=== PATIENT | female | born 1970 | race American Indian/Alaskan Native ===

== ENCOUNTER 2018-12-06 11:59 | Outpatient (CLI) | payer BC, OTHER | END 2018-12-06 12:00 | disposition home or self-care (01) | LOC: LAB 11:59 | PROVIDERS: ATTEND Surgery | DX: N60.22 Fibroadenosis of left breast (principal); N63.21 Unspecified lump in the left breast, upper outer quadrant | CPT/HCPCS: 88305; 88341; 88342 ==

== ENCOUNTER 2018-12-12 14:58 | Outpatient (CLI) | payer BC, OTHER | END 2018-12-12 14:59 | disposition home or self-care (01) | LOC: LABHHL 14:58 | PROVIDERS: ATTEND Surgery | DX: N60.21 Fibroadenosis of right breast (principal) | CPT/HCPCS: 88305 ==

== ENCOUNTER 2020-11-23 13:54 | Outpatient (CLI) | payer BC, OTHER ==
--- NOTE | 2020-11-23 14:40 | Mammography Report ---
DIGITAL SCREENING MAMMOGRAM WITH CAD, 11/23/2020 CLINICAL INFORMATION / INDICATION: Routine screening mammography. TECHNIQUE: Digital bilateral 2D mammography was obtained in the craniocaudal and mediolateral obliqu e projections. This examination was interpreted with the benefit of Computer-Aided Detection analysis . COMPARISON: 10/31/2018, 04/13/2018, 02/11/2016 FINDINGS: Breast Density: The breasts are extremely dense, which lowers the sensitivity of mammography. No dominant mass, suspicious calcifications, or architectural distortion in either breast. Circumscribed nodule in the right breast is unchanged. Biopsy clip is noted in both breasts. IMPRESSION: No mammographic evidence of malignancy. Follow up recommendation: Routine yearly BI-RADS Category 2: Benign. A "normal" or negative report should not discourage follow up or biopsy of a clinically significant f inding. A written summary of these findings will be mailed to the patient. The patient will be entered into a mammography reporting system which will generate a reminder letter for the patient's next appointmen t at the appropriate interval. The [employer] recommends yearly mammograms starting at age 40 and continuing as l ac as a woman is in good health. Breast MRI is recommended for women with an approximate 20-25% or greater lifetime risk of breast cancer, including women with a strong family history of breast or ova delia cancer or who have been treated for Hodgkin's disease. Signer Name: Starr Suggs MD Signed: 11/23/2020 2:35 PM Workstation Name: [id number]
== END 2020-11-23 13:55 | disposition home or self-care (01) ==
LOC: SPVWC 13:54
PROVIDERS: ATTEND Surgery
DX: Z12.31 Encounter for screening mammogram for malignant neoplasm of breast (principal); N63.10 Unspecified lump in the right breast, unspecified quadrant
CPT/HCPCS: 77067